=== PATIENT | male | born 1940 | race Caucasian/White ===

== ENCOUNTER 2018-09-06 04:51 | Emergency (ER) | payer MEDICARE ==
[~2018-09-06] VITALS: Ht 182.9 cm; Wt 90.7 kg
[~2018-09-06 04:51] MED LIST: ASPIRIN81 MG PO; BILBERRY500 MG PO; CO Q-10400 MG PO; ESTER-C 500 MG1 EACH PO; RED YEAST RICE600 MG PO; TRIPLE OMEGA PO; TURMERIC500 MG PO; VITAMIN D5000 UNIT PO; [UNRECOGNIZED DRUG - OTHER]
[2018-09-06] MEDS ORDERED: KETOROLAC TROMETHAMINE 30 MG/ML VIAL IM STA (05:13)
[2018-09-06 05:30] LABS: BILIRUBIN,URINE NEGATIVE (NEGATIVE); CLARITY,URINE HAZY (CLEAR); COLOR,URINE YELLOW (YELLOW); KETONES,URINE NEGATIVE (NEGATIVE); LEUKOCYTE ESTERASE ,URINE NEGATIVE (NEGATIVE); NITRITE,URINE NEGATIVE (NEGATIVE); PROTEIN,URINE DIPSTICK 2+ (NEGATIVE); URINE UROBILINOGEN 0.2 mg/dL (0.2 - 1)
[2018-09-06 05:50] LABS: BACTERIA,URINE RARE /HPF; EPITHELIAL CELLS,URINE MODERATE /LPF
[2018-09-06 05:51] LABS: MUCUS,URINE MODERATE (RARE); TRANSITIONAL EPI CELLS,URINE MODERATE
[2018-09-06] MEDS ORDERED: SODIUM CHLORIDE 0.9% 1000ML 1,000 ML IV STA (06:39)
--- NOTE | 2018-09-06 06:40 | Diagnostic Imaging Report ---
EXAMINATION: RIBS UNILAT W/CXR INDICATION: Left sided abrasions and bruising status post trauma COMPARISON: None FINDINGS: TUBES and LINES: None. LUNGS: Lungs are well inflated. Lungs are clear. There is no evidence of pneumonia or pulmonary edema. PLEURA: No pleural effusion or pneumothorax. HEART AND MEDIASTINUM: The cardiomediastinal silhouette is unremarkable. There are atherosclerotic calcifications within the aorta. BONES AND SOFT TISSUES: No acute osseous lesion. Soft tissues are unremarkable. UPPER ABDOMEN: No free air under the diaphragm. IMPRESSION: No acute thoracic abnormality. Signed by: Dr. Oliverio Viramontes M.D. on 09/06/2018 6:37 AM
[2018-09-06] MEDS ORDERED: CEFTRIAXONE SOD 1 GM VIAL IV ONE (06:45)
[2018-09-06] MEDS ORDERED: CEFTRIAXONE SOD 1 GM VIAL ONE (06:47)
[2018-09-06 06:52] LABS: BASOPHILS % 0.3 % (0.0-1.0); EOSINOPHILS # (AUTO) 0.1 (0.0-0.4); EOSINOPHILS % 0.8 % (0.0-6.0); HEMATOCRIT 44.9 % (38.2-49.6); HEMOGLOBIN 14.8 g/dL (14.0-18.0); LYMPHOCYTES # (AUTO) 1.7 (1.0-3.2); LYMPHOCYTES % 19.6 % (18.0-39.1); MEAN CORPUSCULAR HEMOGLOBIN 27.8 pg (28-32); MEAN CORPUSCULAR VOLUME 84.2 fL (81-99); MONOCYTES # (AUTO) 0.7 (0.2-0.8); MONOCYTES % 7.6 % (4.4-11.3); NEUTROPHILS # (AUTO) 6.2 (2.1-6.9); NEUTROPHILS % 70.2 % (38.7-80.0); PLATELET COUNT 180 x10e3/uL (140-360); RED BLOOD COUNT 5.33 x10e6/uL (4.3-5.7); RED CELL DISTRIBUTION WIDTH 13.4 % (11.7-14.4)
[2018-09-06 07:24] LABS: ALBUMIN 4.1 g/dL (3.5-5.0); ALBUMIN/GLOBULIN RATIO 1.3 (0.8-2.0); ANION GAP 14.5 mmol/L (8-16); CALCIUM 10.1 mg/dL (8.4-10.2); CREATININE, SERUM 1.21 mg/dL (0.72-1.25); MAGNESIUM 2.2 MG/DL (1.3-2.1); POTASSIUM 4.5 mmol/L (3.5-5.1)
--- NOTE | 2018-09-06 07:44 | Diagnostic Imaging Report ---
PROCEDURE: CT ABDOMEN AND PELVIS WITHOUT CONTRAST TECHNIQUE: The abdomen and pelvis were scanned utilizing a multidetector helical scanner from the diaphragm to the lesser trochanter. No oral contrast was administered. No IV contrast was administered per protocol. Coronal and sagittal multiplanar reformations were obtained. COMPARISON: CT Abdomen/Pelvis 02/04/[address] Abdomen/Pelvis 02/16/17 (images were not available to review at the time of dictation) INDICATIONS: LEFT FLANK PAIN FINDINGS: ABSENCE OF INTRAVENOUS CONTRAST DECREASES SENSITIVITY FOR DETECTION OF FOCAL LESIONS AND VASCULAR PATHOLOGY. LOWER THORAX: Coronary atherosclerosis. Patchy dependent atelectasis. Calcified granuloma in the right upper and lower lobes. HEPATOBILIARY: No focal hepatic lesions. No biliary ductal dilatation. Status post cholecystectomy. SPLEEN: No splenomegaly. Punctate splenic calcifications. PANCREAS: No focal masses or ductal dilatation. ADRENALS: No adrenal nodules. KIDNEYS/URETERS: No hydronephrosis or solid mass lesions. Punctate 1 mm stone in the right upper pole kidney on series 3 image 62; 1-2 mm stones in the right mid pole on images 70, 72, and 79. Mild left perinephric stranding. PELVIC ORGANS/BLADDER: There is a 3 mm stone in the left aspect of the bladder near the UVJ. Enlarged prostate is again noted. There is circumferential thickening of the bladder measuring up to 8 mm which is mildly decompressed. PERITONEUM / RETROPERITONEUM: No free air or fluid. LYMPH NODES: No lymphadenopathy. VESSELS: Atherosclerotic vascular calcifications. GI TRACT: No distention or wall thickening. Normal appendix. Extensive colonic diverticulosis without CT evidence of diverticulitis. BONES AND SOFT TISSUES: No acute bony findings. No evidence of suspicious lytic or blastic lesions. IMPRESSION: A 3 mm stone in the bladder near the left UVJ, with associated mild left perinephric stranding, suggesting recent passage of the stone into the bladder from the left ureter. Circumferential bladder wall thickening, which could reflect cystitis in the appropriate clinical context. Punctate 1-2 mm non-obstructing right renal stones. Dictated by: AVRIL SOLITARIO M.D. on 09/06/2018 at 7:53 Electronically approved by: AVRIL SOLITARIO M.D. on 09/06/2018 at 7:53
== END 2018-09-06 09:10 | disposition home or self-care (01) ==
LOC: ER 04:51
DX: M54.5 Low back pain (principal); R10.9 Unspecified abdominal pain; N13.2 Hydronephrosis with renal and ureteral calculous obstruction; Z85.46 Personal history of malignant neoplasm of prostate
CPT/HCPCS: 36415; 71101; 74176; 80053; 81001; 83735; 85025; 87086; 99284; J0696; J1885; J7030

== ENCOUNTER 2018-12-23 11:26 | Inpatient (IN) | payer MEDICARE ==
--- NOTE | 2018-12-21 12:05 | Diagnostic Imaging Report ---
EXAM: CHEST 2 VIEWS, PA and lateral DATE: 12/21/2018 11:07 AM Time stamp on exam: 11:12 AM INDICATION: Preoperative COMPARISON: None FINDINGS: LINES/TUBES: None LUNGS: No consolidations or edema. PLEURA: No effusions or pneumothorax. HEART AND MEDIASTINUM: Normal size and contour. Tortuous thoracic aorta. BONES AND SOFT TISSUES: No acute findings. Degenerative spurring of the spine. IMPRESSION: No acute thoracic abnormality. Signed by: Dr. Bj Bolanos DO on 12/21/2018 12:02 PM
[~2018-12-23] VITALS: Ht 182.9 cm; Wt 83.0 kg
[~2018-12-23 11:26] MED LIST changes: +B12; +D3
--- OUTSIDE RECORDS SUMMARY | 2018-12-23 11:29 | XMS REPORT ---
Author Author [facility] Address Unknown Phone Unavailable Care Team Providers Care Family Worker Name Role Phone MAGALY KUO Unavailable Unavailable SWEET, Kirk LAIRD Unavailable Unavailable Problems This patient has no known problems. Allergies, Adverse Reactions, Alerts This patient has no known allergies or adverse reactions. Medications This patient has no known medications. Results Test Description Test Time Test Comments Text Results Atomic Results Result Comments CHEST 2 VIEWS 2018-12-21 12:01:00 [place] [address] Patient Name: RONNIE PALUMBO MR #: [id number] : 1940 Age/Sex: 78/M Req #: [id number] Adm Physician: Ordered by: MAGALY KUO MD Report #: [id number] Location: OR Room/Bed: Procedure: [id number] DX/CHEST 2 VIEWS Exam Date: Exam Time: REPORT STATUS: Signed EXAM: CHEST 2 VIEWS, PA and lateral DATE: 12/21/2018 11:07 AM Time stamp on exam: 11:12 AM INDICATION: Preoperative COMPARISON: None FINDINGS: LINES/TUBES: None LUNGS: No consolidations or edema. PLEURA: No effusions or pneumothorax. HEART AND MEDIASTINUM: Normal size and contour. Tortuous thoracic aorta. BONES AND SOFT TISSUES: No acute findings. Degenerative spurring of the spine. IMPRESSION: No acute thoracic abnormality. Signed by: Dr. Zoila Bolanos DO on 12/21/2018 12:02 PM Dictated By: ZOILA BOLANOS DO 1202 Transcribed By: KAMILLE on 12/21/18 1202 COPY TO: MAGALY KUO MD CT ABDOMEN/PELVIS WO 2018-09-06 07:53:00 [place] [address] Patient Name: RONNIE PALUMBO MR #: [id number] : 1940 Age/Sex: 78/M Req #: [id number] Adm Physician: Ordered by: YASMEEN AGUILAR MD Report #: [id number] Location: ER Room/Bed: Procedure: [id number] CT/CT ABDOMEN/PELVIS WO Exam Date: 09/06/18 Exam Time: 0657 REPORT STATUS: Signed PROCEDURE: CT ABDOMEN AND PELVIS WITHOUT CONTRAST TECHNIQUE: The abdomen and pelvis were scanned utilizing a multidetector helical scanner from the diaphragm to the lesser trochanter. No oral contrast was administered. No IV contrast was administered per protocol. Coronal and sagittal multiplanar reformations were obtained. COMPARISON: CT Abdomen/Pelvis 02/04/[address] Abdomen/Pelvis 02/16/17 (images were not available to review at the time of dictation) INDICATIONS: LEFT FLANK PAIN FINDINGS: ABSENCE OF INTRAVENOUS CONTRAST DECREASES SENSITIVITY FOR DETECTION OF FOCAL LESIONS AND VASCULAR PATHOLOGY. LOWER THORAX: Coronary atherosclerosis. Patchy dependent atelectasis. Calcified granuloma in the right upper and lower lobes. HEPATOBILIARY: No focal hepatic lesions. No biliary ductal dilatation. Status post cholecystectomy. SPLEEN: No splenomegaly. Punctate splenic calcifications. PANCREAS: No focal masses or ductal dilatation. ADRENALS: No adrenal nodules. KIDNEYS/URETERS: No hydronephrosis or solid mass lesions. Punctate 1 mm stone in the right upper pole kidney on series 3 image 62; 1-2 mm stones in the right mid pole on images 70, 72, and 79. Mild left perinephric stranding. PELVIC ORGANS/BLADDER: There is a 3 mm stone in the left aspect of the bladder near the UVJ. Enlarged prostate is again noted. There is circumferential thickening of the bladder measuring up to 8 mm which is mildly decompressed. PERITONEUM / RETROPERITONEUM: No free air or fluid. LYMPH NODES: No lymphadenopathy. VESSELS: Atherosclerotic vascular c alcifications. GI TRACT: No distention or wall thickening. Normal appendix. Extensive colonic diverticulosis without CT evidence of diverticulitis. BONES AND SOFT TISSUES: No acute bony findings. No evidence of suspicious lytic or blastic lesions. IMPRESSION: A 3 mm stone in the bladder near the left UVJ, with associated mild left perinephric stranding, suggesting recent passage of the stone into the bladder from the left ureter. Circumferential bladder wall thickening, which could reflect cystitis in the appropriate clinical context. Punctate 1-2 mm non- obstructing right renal stones. Dictated by: AVRIL SOLITARIO M.D. on 09/06/2018 at 7:53 Electronically approved by: AVRIL SOLITARIO M.D. on 09/06/2018 at 7:53 Dictated By: AVRIL SOLITARIO MD 2 Transcribed By: ANURADHA on 09/06/18752 COPY TO: YASMEEN AGUILAR MD [facility] W/CXR 2018-09-06 06:36:00 [place] [address] Patient Name: RONNIE PALUMBO MR #: [id number] : 1940 Age/Sex: 78/M Req #: [id number] Adm Physician: Ordered by: YASMEEN AGUILAR MD Report #: [id number] Location: ER Room/Bed: Procedure: [id number] DX/RIBS UNILAT W/CXR Exam Date: Exam Time: REPORT STATUS: Signed EXAMINATION: RIBS UNILAT W/CXR INDICATION: Left sided abrasions and bruising status post trauma COMPARISON: None FINDINGS: TUBES and LINES: None. LUNGS: Lungs are well inflated. Lungs are clear. There is no evidence of pneumonia or pulmonary edema. PLEURA: No pleural effusion or pneumothorax. HEART AND MEDIASTINUM: The cardiomediastinal silhouette is unremarkable. There are atherosclerotic calcifications within the aorta. BONES AND SOFT TISSUES: No acute osseous lesion. Soft tissues are unremarkable. UPPER ABDOMEN: No free air under the diaphragm. IMPRESSION: No acute thoracic abnormality. Signed by: Dr. Oliverio Viramontes M.D. on 09/06/2018 6:37 AM Dictated By: OLIVERIO CRUM MD 6 Transcribed By: KAMILLE on 09/06/18636 COPY TO: YASMEEN AGUILAR MD
[2018-12-23] MEDS ORDERED: GENTAMICIN 80MG/NS 100 ML 200 ML IV ONE (11:42)
[2018-12-23] MEDS ORDERED: CEFTRIAXONE SOD 1 GM/NS 50 ML 50 ML IV ONE (11:42)
[2018-12-23] MEDS ORDERED: SEVOFLURANE INHAL SOLN 250 ML PEN BTL ONE (14:46)
[2018-12-23] MEDS ORDERED: ONDANSETRON HCL INJ 2MG/ML 2ML 2 MG/ML VIAL ONE ×2 (14:46→19:15)
[2018-12-23] MEDS ORDERED: LIDOCAINE HCL 2% LOCAL INJ 5 ML SDV VIAL INJ ONE (14:46)
[2018-12-23] MEDS ORDERED: DEXAMETHASONE SOD PHOS INJ 4 MG/ML VIAL ONE (14:46)
[2018-12-23] MEDS ORDERED: EPHEDRINE SULFATE INJ 50 MG/10 ML SYR ONE (14:46)
[2018-12-23] MEDS ORDERED: PROPOFOL IV EMULSION 10 MG/ML 20 ML VIAL ONE (14:46)
[2018-12-23] MEDS ORDERED: BELLADONNA/OPIUM 30 MG SUPP RC ONE (15:16)
[2018-12-23] MEDS ORDERED: IOPAMIDOL 610MG/1ML 300 MG/ML VIAL IV ONE (15:17)
[2018-12-23] MEDS ORDERED: MEPERIDINE HCL INJ 25 MG/ML VIAL ONE (17:12)
[2018-12-23] MEDS ORDERED: MORPHINE SULFATE INJ 4 MG/ML INJ 1ML ONE (17:59)
[2018-12-23] MEDS ORDERED: DIPHENHYDRAMINE HCL 25 MG CAP PO PRN (18:15)
[2018-12-23] MEDS ORDERED: ACETAMINOPHEN/CODEINE 300MG - 30MG TAB PO PRN (18:15)
[2018-12-23] MEDS ORDERED: BELLADONNA/OPIUM 30 MG SUPP RC PRN (18:15)
[2018-12-23] MEDS ORDERED: ONDANSETRON HCL INJ 2MG/ML 2ML 2 MG/ML VIAL IV PRN (18:15)
[2018-12-23] MEDS ORDERED: CEFTRIAXONE SOD 1 GM/NS 50 ML 50 ML IV SCH (18:30)
[2018-12-23] MEDS ORDERED: PHENAZOPYRIDINE HCL 100 MG TAB PO ONE (18:45)
[2018-12-23 20:19] VITALS: BP 160/76
[2018-12-23 20:21] VITALS: BP 160/76
--- NOTE | 2018-12-23 20:21 | NUR ---
PT ARRIVING TO UNIT IN HOSPITAL BED WITH CBI IN PROGRESS AND FAMILY AT BEDSIDE, NO DISTRESS NOTED
[2018-12-23 20:25] VITALS: BP 160/76
[2018-12-23 21:12] LABS: BASOPHILS % 0.2 % (0.0-1.0); HEMATOCRIT 37.8 % (38.2-49.6); HEMOGLOBIN 12.6 g/dL (14.0-18.0); LYMPHOCYTES # (AUTO) 0.8 (1.0-3.2); LYMPHOCYTES % 6.1 % (18.0-39.1); MEAN CORPUSCULAR HEMOGLOBIN 27.2 pg (28-32); MEAN CORPUSCULAR HGB CONC 33.3 g/dL (31-35); MEAN CORPUSCULAR VOLUME 81.6 fL (81-99); MONOCYTES # (AUTO) 0.3 (0.2-0.8); MONOCYTES % 2.4 % (4.4-11.3); NEUTROPHILS # (AUTO) 11.2 (2.1-6.9); NEUTROPHILS % 90.6 % (38.7-80.0); PLATELET COUNT 153 x10e3/uL (140-360); RED BLOOD COUNT 4.63 x10e6/uL (4.3-5.7); RED CELL DISTRIBUTION WIDTH 13.9 % (11.7-14.4)
[2018-12-23 21:31] LABS: ANION GAP 14.6 mmol/L (8-16); BLOOD UREA NITROGEN 14 mg/dL (7-26); BUN/CREATININE RATIO 13 (6-25); CALCIUM 8.6 mg/dL (8.4-10.2); CARBON DIOXIDE 22 mmol/L (22-29); CHLORIDE 104 mmol/L (98-107); CREATININE, SERUM 1.09 mg/dL (0.72-1.25); EST GLOMERULAR FILTRATION RATE > 60 ML/MIN (60-); GLUCOSE 145 mg/dL (74-118); POTASSIUM 3.6 mmol/L (3.5-5.1); SODIUM 137 mmol/L (136-145)
--- NOTE | 2018-12-23 22:33 | Operative Report ---
DATE OF PROCEDURE: December 23, 2018 PREOPERATIVE DIAGNOSES 1. Obstructive benign prostatic hypertrophy. 2. Hematuria history. POSTOPERATIVE DIAGNOSES 1. Obstructive benign prostatic hypertrophy. 2. Hematuria history. PROCEDURES PERFORMED 1. Cystourethroscopy with bilateral ureteral catheterization and retrograde ureteropyelography hematuria history. 2. Interpretation of retrograde urethrography. 3. Cystourethroscopy with transurethral resection of the prostate utilizing the plasma button electrode. ANESTHESIA: General. COMPLICATIONS: None. CLINICAL SUMMARY: Jeremie Moreno is a 78-year-old man with what is believed to be clinically localized prostate cancer, managed with watchful waiting. The patient has long-standing severe BPH, status post prior transurethral prostate procedure. The patient has obstructing prostatic tissue that is caving into his previously opened prostate bed. He is elected to proceed with surgery as planned. He is aware of the risks of bleeding, infection, injury to adjacent structures, need for additional procedures, and elected to proceed. OPERATIVE PROCEDURE IN DETAIL: Informed consent was verified. Jeremie Moreno was properly identified, taken to the operating room, placed on the cystoscopy table in the supine position. Anesthesia was uneventfully begun. The patient was then carefully and gently repositioned in the dorsal lithotomy position with all pressure points well padded. His genitalia were prepared and draped in usual sterile fashion. The 22.5-Sammarinese cystourethroscope sheath visual obturator placed, atraumatically inserted into the patient's urethra. It was guided down unremarkably in the urethra through the normal sphincteric region into the prostate bed, which was significant for visually obstructing BPH caving in mostly from anteriorly. Also, there was re-growth of tissue from the apex, more pronounced on the right than on the left. That was also visually obstructing. We entered the patient's bladder where panendoscopy revealed severe trabeculations with small diverticuli and cellules throughout the entire bladder. No suspicious lesions were identified. There were no tumors and no stones. Normally positioned and configured ureteral orifices were noted. An 8-Sammarinese catheter was used to cannulate each ureter and retrograde ureteral pyelograms were performed. Interpretation of retrograde ureteropyelography contrast was instilled in a retrograde fashion bilaterally. There were no tumors, no stones, and no diverticuli, and no obstructive drainage was observed bilaterally fluoroscopically. The resectoscope was atraumatically placed. We then utilized the plasma button electron to vaporize the prostate. Vaporization of the prostate was carried out from the bladder neck too, but never passed the verumontanum. Most of the procedures performed on the right lateral lobe in the apical region as well as the on the anterior prostatic tissue that was caving in and obstructing. Once all that tissue was vaporized, we verified hemostasis. We evacuated debris. Hemostasis was excellent. The resectoscope was withdrawn. A 3-way Bowman catheter was placed; 60 mL of water was placed in 30 mL balloon. Due to the large size of the prostate bed and cavity, the patient was then placed on continuous bladder irrigation with clear efflux. Patient was then uneventfully reversed from anesthesia and taken to recovery room in stable condition. There were no complications throughout the procedure. Patient tolerated the procedure well. We will monitor the patient's irrigation in the recovery room and determine whether the patient may be discharged with a Bowman catheter or whether he will need to be admitted for continuous irrigation. Job#: [id number] RTY cc: Mert Bautista MD
[2018-12-23] MEDS: D5.45%NS/KCL 20MEQ 1,000 ML IV SCH (22:42)
[2018-12-24] VITALS (7 sets, daily range): BP systolic 116–143; BP diastolic 60–73
[2018-12-24] MEDS: D5.45%NS/KCL 20MEQ 1,000 ML IV SCH ×3 (02:15→23:06)
[2018-12-24 05:53] LABS: BASOPHILS # (AUTO) 0.1 (0.0-0.1); BASOPHILS % 0.4 % (0.0-1.0); EOSINOPHILS % 0.2 % (0.0-6.0); HEMATOCRIT 36.1 % (38.2-49.6); HEMOGLOBIN 11.8 g/dL (14.0-18.0); LYMPHOCYTES # (AUTO) 1.4 (1.0-3.2); MEAN CORPUSCULAR HEMOGLOBIN 27.2 pg (28-32); MEAN CORPUSCULAR HGB CONC 32.7 g/dL (31-35); MEAN CORPUSCULAR VOLUME 83.2 fL (81-99); MONOCYTES # (AUTO) 0.9 (0.2-0.8); MONOCYTES % 7.3 % (4.4-11.3); NEUTROPHILS # (AUTO) 10.2 (2.1-6.9); NEUTROPHILS % 80.6 % (38.7-80.0); PLATELET COUNT 171 x10e3/uL (140-360); RED BLOOD COUNT 4.34 x10e6/uL (4.3-5.7); RED CELL DISTRIBUTION WIDTH 13.8 % (11.7-14.4)
--- NOTE | 2018-12-24 06:03 | NUR ---
PT RESTING IN BED ALERT AND ORIENTED NO DISTRESS NOTED, CALL LIGHT IN REACH, DENIES NEEDS, INSTRUCTED TO CALL WITH NEEDS
[2018-12-24 06:22] LABS: ANION GAP 12.1 mmol/L (8-16); BLOOD UREA NITROGEN 12 mg/dL (7-26); BUN/CREATININE RATIO 13 (6-25); CALCIUM 8.1 mg/dL (8.4-10.2); CARBON DIOXIDE 22 mmol/L (22-29); CHLORIDE 106 mmol/L (98-107); CREATININE, SERUM 0.89 mg/dL (0.72-1.25); EST GLOMERULAR FILTRATION RATE > 60 ML/MIN (60-); GLUCOSE 123 mg/dL (74-118); POTASSIUM 4.1 mmol/L (3.5-5.1); SODIUM 136 mmol/L (136-145)
[2018-12-24] MEDS: DOCUSATE SODIUM 100 MG CAP PO SCH ×2 (10:00→17:33)
--- NOTE | 2018-12-24 10:00 | NUR ---
assessment complete no distress noted, updated on poc voiced understanding, deneis pain at this time, marti to bsd with rodriguez urine noted, continuous bladder irrigation infusing, ivf infusing to r hand 20g no ss of infiltration noted, no other co voiced call light in reach will continue to monitor
--- NOTE | 2018-12-24 12:03 | NUR ---
Nutrition Screen Note RD Recommendation for Physician: Continue diet as ordered Plan of Care: RD following, monitoring for adequacy and tolerance Nutrition reason for involvement: Nutrition Risk Trigger - MST Primary Diagnose(s): Prostatism Ht:72 in Wt:183lbs BMI:24.8 kg/m2 IBW:178lbs RD Assessment:(12/24/2018) Pt is eating well and denies any difficulty chewing or swallowing nor has any C/o N,V, D. Current Diet: Regular diet Malnutrition Evaluation (12/24/2018) The patient does not meet criteria for a specified degree of malnutrition at this time. Will re-evaluate at follow-up as appropriate. Diet Education Needs Assessment: Diet education not indicated. Diet Adequacy: Meeting calorie needs, Meeting protein needs, Meeting fluid needs Tolerance: Tolerating PO Nutrition Care Level:Winston Hinojosa RD, LD, [facility]
--- NOTE | 2018-12-24 13:12 | History and Physical ---
CHIEF COMPLAINT: "I have blood in my urine." HISTORY OF PRESENT ILLNESS: This is a 78-year-old white man who yesterday underwent elective transurethral resection of the prostate. The surgery was performed successfully by his urologist, Dr. Christopher Marquez. The patient states he has undergone TURP twice before, first in 2014 and second in 2016. The patient also states that at age 65, he was diagnosed with prostate cancer. The patient had blood work done yesterday and it was found that hemoglobin at 12.6 g/dL. Today's hemoglobin is 11.8 g/dL. Yesterday's white blood cell count was 12,500 with 80% segmented neutrophils. The patient is currently receiving intravenous ceftriaxone, which he is tolerating quite well. He is also receiving intravenous fluids. Moreover, he is having his bladder irrigated until clear as per Urology orders. The patient is voicing no complaints. REVIEW OF SYSTEMS GENERAL: Weight has been stable. HEENT: No headache. No vision changes. CARDIOVASCULAR: No chest pain. GI: No nausea, vomiting, diarrhea, or constipation. : The patient has history of recurrent gross hematuria. NEUROMUSCULAR: No limb weakness or numbness. ALLERGIES: NO KNOWN DRUG ALLERGIES. HOME MEDICATIONS 1. Vitamin D3 supplementation. 2. Coenzyme Q10 supplementation. FAMILY HISTORY: No family history positive for cancer. SOCIAL HISTORY: He is with his . No history of tobacco or alcohol use. He is semi-retired. PAST SURGICAL HISTORY 1. TURP twice (2014 and 2016). 2. TURP yesterday December 23, 2018. 3. Laparoscopic cholecystectomy. PAST MEDICAL HISTORY 1. Prostate cancer diagnosed at age 65. 2. Benign prostatic hypertrophy. PHYSICAL EXAMINATION GENERAL: He is awake and alert, in no distress, very pleasant. VITAL SIGNS: Height is 6 feet 0 inches, weight is 183 pounds, BMI 24, blood pressure 133/67, pulse 66, respiratory rate 18, temperature 98.6. Oxygen saturation is 97% on room air. INTEGUMENT: Skin is warm and dry. No pallor, jaundice, or diaphoresis. HEENT: Anicteric sclerae with moist mucous membranes. CARDIOVASCULAR: Distant heart sounds. Regular rate and rhythm. LUNGS: No rales. No rhonchi. No wheezing. ABDOMEN: Benign. EXTREMITIES: No edema or deformity. NEUROLOGIC: Intact. : The patient has Bowman catheter in place and there is obvious hematuria. DIAGNOSES 1. Status post TURP December 23, 2018. 2. Gross hematuria. 3. Benign prostatic hypertrophy. 4. Prostate cancer. 5. Hypertension. PLAN 1. Decrease the rate of intravenous fluids. 2. Continue bladder irrigation as per Urology. 3. Follow hemoglobin and hematocrit. 4. Follow renal function. 5. Follow electrolytes. 6. Follow blood pressure readings. I spent 35 minutes in the care of this patient. Job#: [id number] SEBASTIAN
--- NOTE | 2018-12-24 19:10 | NUR ---
REPORT RECEIVED FROM OFF GOING NURSE, PT RESTING IN BED ALERT AND ORIENTED, NO DISTRESS NOTED, CBI IN PROGRESS WITH NO COMPLICATIONS NOTED, DENIES NEEDS, CALL LIGHT IN REACH, INSTRUCTED TO CALL WITH NEEDS
[2018-12-24] MEDS: CEFTRIAXONE SOD 1 GM/NS 50 ML 50 ML IV SCH (21:05)
[2018-12-25] VITALS (8 sets, daily range): BP systolic 125–181; BP diastolic 64–84
--- NOTE | 2018-12-25 05:17 | NUR ---
PT RESTING IN BED WITH EYES CLOSED, NO DISTRESS NOTED, CBI IN PROGRESS WITH NO COMPLICATIONS NOTED, CALL LIGHT IN REACH
[2018-12-25 06:42] LABS: BASOPHILS % 0.3 % (0.0-1.0); EOSINOPHILS # (AUTO) 0.3 (0.0-0.4); EOSINOPHILS % 2.7 % (0.0-6.0); HEMATOCRIT 34.5 % (38.2-49.6); HEMOGLOBIN 11.9 g/dL (14.0-18.0); LYMPHOCYTES # (AUTO) 1.8 (1.0-3.2); LYMPHOCYTES % 19.3 % (18.0-39.1); MEAN CORPUSCULAR HEMOGLOBIN 28.5 pg (28-32); MEAN CORPUSCULAR HGB CONC 34.5 g/dL (31-35); MEAN CORPUSCULAR VOLUME 82.7 fL (81-99); MONOCYTES # (AUTO) 0.7 (0.2-0.8); MONOCYTES % 7.3 % (4.4-11.3); NEUTROPHILS # (AUTO) 6.4 (2.1-6.9); NEUTROPHILS % 69.6 % (38.7-80.0); PLATELET COUNT 174 x10e3/uL (140-360); RED BLOOD COUNT 4.17 x10e6/uL (4.3-5.7); RED CELL DISTRIBUTION WIDTH 14.4 % (11.7-14.4)
[2018-12-25 07:06] LABS: ALANINE AMINOTRANSFERASE 7 IU/L (0-55); ALBUMIN 3.1 g/dL (3.5-5.0); ALBUMIN/GLOBULIN RATIO 1.6 (0.8-2.0); ALKALINE PHOSPHATASE 47 IU/L (40-150); BLOOD UREA NITROGEN 10 mg/dL (7-26); BUN/CREATININE RATIO 11 (6-25); CALCIUM 8.4 mg/dL (8.4-10.2); CARBON DIOXIDE 25 mmol/L (22-29); CHLORIDE 106 mmol/L (98-107); CREATININE, SERUM 0.92 mg/dL (0.72-1.25); EST GLOMERULAR FILTRATION RATE > 60 ML/MIN (60-); GLUCOSE 106 mg/dL (74-118); SODIUM 140 mmol/L (136-145)
[2018-12-25] MEDS: D5.45%NS/KCL 20MEQ 1,000 ML IV SCH (10:03)
[2018-12-25] MEDS: DOCUSATE SODIUM 100 MG CAP PO SCH ×2 (10:03→18:00)
[2018-12-25] MEDS: CEFTRIAXONE SOD 1 GM/NS 50 ML 50 ML IV SCH ×2 (10:03→21:20)
--- NOTE | 2018-12-25 10:03 | NUR ---
assessment complete no distress noted updated on poc voiced understanding, denies pain at this time, marti to bsd with rodriguez urine noted, continuous bladder irrigation infusing without difficulty, no other co voiced call light in reach will continue to monitor
[2018-12-25] MEDS ORDERED: POTASSIUM CHLORIDE 10MEQ EA PO ONE (10:45)
--- NOTE | 2018-12-25 20:23 | NUR ---
RECEIVED PT IN BED AOX3 DENIES PAIN PT IS ON CBI .RESPIRATIONS ARE EVEN AND UNLABORED .CALL LIGHT WITH IN REACH .RT HAND 20M G S/L
[2018-12-26] VITALS (8 sets, daily range): BP systolic 124–157; BP diastolic 64–89
--- NOTE | 2018-12-26 06:13 | NUR ---
PT RESTING .PT IS ON CBI .URINE OFF AND ON CLEAR ND LIGHT TIFFANY.NO ACUTE DISTRESS NOTED CONTINUE TO MONITOR
[2018-12-26 06:19] LABS: BASOPHILS % 0.3 % (0.0-1.0); EOSINOPHILS # (AUTO) 0.4 (0.0-0.4); EOSINOPHILS % 3.2 % (0.0-6.0); HEMATOCRIT 34.6 % (38.2-49.6); HEMOGLOBIN 12.3 g/dL (14.0-18.0); LYMPHOCYTES # (AUTO) 1.9 (1.0-3.2); LYMPHOCYTES % 17.2 % (18.0-39.1); MEAN CORPUSCULAR HEMOGLOBIN 28.8 pg (28-32); MEAN CORPUSCULAR HGB CONC 35.5 g/dL (31-35); MONOCYTES # (AUTO) 0.8 (0.2-0.8); MONOCYTES % 7.4 % (4.4-11.3); NEUTROPHILS # (AUTO) 7.8 (2.1-6.9); NEUTROPHILS % 70.7 % (38.7-80.0); PLATELET COUNT 172 x10e3/uL (140-360); RED BLOOD COUNT 4.27 x10e6/uL (4.3-5.7); RED CELL DISTRIBUTION WIDTH 14.1 % (11.7-14.4)
[2018-12-26 06:45] LABS: ANION GAP 12.4 mmol/L (8-16); BLOOD UREA NITROGEN 10 mg/dL (7-26); BUN/CREATININE RATIO 10 (6-25); CALCIUM 8.9 mg/dL (8.4-10.2); CARBON DIOXIDE 26 mmol/L (22-29); CHLORIDE 103 mmol/L (98-107); CREATININE, SERUM 1.03 mg/dL (0.72-1.25); EST GLOMERULAR FILTRATION RATE > 60 ML/MIN (60-); GLUCOSE 103 mg/dL (74-118); POTASSIUM 4.4 mmol/L (3.5-5.1); SODIUM 137 mmol/L (136-145)
--- NOTE | 2018-12-26 07:24 | NUR ---
REPORT GIVEN TO THE ONCOMING NURSE
[2018-12-26] MEDS: CEFTRIAXONE SOD 1 GM/NS 50 ML 50 ML IV SCH ×2 (08:59→21:00)
[2018-12-26] MEDS: DOCUSATE SODIUM 100 MG CAP PO SCH ×2 (08:59→17:00)
[2018-12-26 14:53] LABS: INR 0.93; PARTIAL THROMBOPLASTIN TIME 28.3 seconds (23.8-35.5); PROTHROMBIN TIME 13.3 seconds (11.9-14.5)
--- NOTE | 2018-12-26 17:59 | Diagnostic Imaging Report ---
EXAM: Liver Ultrasound INDICATION: Abdominal pain. Assess for fatty liver. Cirrhosis ^assess for fatty liver disease associated cirrhosis ^[id number] ^1644 ^Y COMPARISON: None. TECHNIQUE: Transverse and longitudinal images of the liver were obtained. FINDINGS: Liver: Size: 14.6 cm in the right midclavicular line, normal Appearance: Normal echogenicity, smooth contour Mass: No focal masses Gallbladder: Surgically absent Bile Ducts: Intrahepatic Ducts: No dilatation Extrahepatic Ducts: Limited Free Fluid: No ascites or pleural effusion Main portal vein normal appearance with diameter of 0.9 cm. Right kidney normal in appearance measuring 10.4 cm. Pancreas and abdominal aorta unremarkable. Inferior vena cava unremarkable. Common bile duct measures 0.3 cm. Sonographic Roman sign is negative. IMPRESSION: Patient is status postcholecystectomy. The liver is normal in appearance. The right kidney is normal in appearance. Signed by: Dr. Chris Cao M.D. on 12/26/2018 5:55 PM
--- NOTE | 2018-12-26 19:30 | NUR ---
RECEIVED PATIENT RESTING IN BED. DR. KUO RECENTLY ROUNDED WITH PATIENT. CBI TO KELLY CLAMPED, WITH PRN IRRIGATION IF NEEDED. BED LOCKED AND IN LOWEST POSITION, CALL LIGHT WITHIN EASY REACH.
[2018-12-27] VITALS: BP 128/79
[2018-12-27 04:00] VITALS: BP 139/77
--- NOTE | 2018-12-27 04:57 | NUR ---
Patient is asleep. No pain or distress noted. Call weeks within reach.
[2018-12-27 07:01] LABS: BASOPHILS # (AUTO) 0.1 (0.0-0.1); BASOPHILS % 0.4 % (0.0-1.0); EOSINOPHILS # (AUTO) 0.3 (0.0-0.4); EOSINOPHILS % 2.8 % (0.0-6.0); HEMATOCRIT 38.4 % (38.2-49.6); HEMOGLOBIN 12.4 g/dL (14.0-18.0); LYMPHOCYTES # (AUTO) 1.9 (1.0-3.2); LYMPHOCYTES % 16.3 % (18.0-39.1); MEAN CORPUSCULAR HEMOGLOBIN 26.8 pg (28-32); MEAN CORPUSCULAR HGB CONC 32.3 g/dL (31-35); MEAN CORPUSCULAR VOLUME 83.1 fL (81-99); MONOCYTES # (AUTO) 0.8 (0.2-0.8); NEUTROPHILS # (AUTO) 8.2 (2.1-6.9); NEUTROPHILS % 72.4 % (38.7-80.0); PLATELET COUNT 197 x10e3/uL (140-360); RED BLOOD COUNT 4.62 x10e6/uL (4.3-5.7); RED CELL DISTRIBUTION WIDTH 14.1 % (11.7-14.4)
[2018-12-27 07:13] LABS: ALANINE AMINOTRANSFERASE 6 IU/L (0-55); ALBUMIN 3.4 g/dL (3.5-5.0); ALBUMIN/GLOBULIN RATIO 1.3 (0.8-2.0); ALKALINE PHOSPHATASE 55 IU/L (40-150); ANION GAP 14.1 mmol/L (8-16); BLOOD UREA NITROGEN 16 mg/dL (7-26); BUN/CREATININE RATIO 15 (6-25); CALCIUM 9.2 mg/dL (8.4-10.2); CARBON DIOXIDE 26 mmol/L (22-29); CHLORIDE 102 mmol/L (98-107); CREATININE, SERUM 1.07 mg/dL (0.72-1.25); EST GLOMERULAR FILTRATION RATE > 60 ML/MIN (60-); GLUCOSE 105 mg/dL (74-118); POTASSIUM 4.1 mmol/L (3.5-5.1); SODIUM 138 mmol/L (136-145)
--- NOTE | 2018-12-27 07:15 | NUR ---
Report given to morning nurse. Patient reports no pain or distress.
[2018-12-27 07:39] VITALS: BP 137/72
[2018-12-27 07:50] VITALS: BP 137/72
[2018-12-27] MEDS: CEFTRIAXONE SOD 1 GM/NS 50 ML 50 ML IV SCH (07:50)
[2018-12-27] MEDS: DOCUSATE SODIUM 100 MG CAP PO SCH (07:50)
[2018-12-27] MEDS ORDERED: TYLENOL WITH C1 EACH PO (12:04)
[2018-12-27 12:05] VITALS: BP 124/76
[2018-12-27] MEDS ORDERED: OXYBUTYNIN CHLOR5 MG PO (12:06)
[2018-12-27] MEDS ORDERED: LEVAQUIN500 MG PO (12:06)
--- NOTE | 2018-12-27 12:32 | NUR ---
CASE MANAGEMENT INITIAL ASSESSMENT Guide Plant to bedside to discuss plan of care with patient/family. CM/SW role and care transitions discussed. Anticipated discharge plan discussed along with duration of care. CM/SW discussed patients right to make decisions in care. CM/SW work hours given. Patient lives: with Kacy Admit/Transfer: from PACU, came from home Hospital/ER visits since last admit: ER visit in Aug 2018 POA/Emergency contact: Kacy Moreno [phone] Current/Previous Home Health: none PCP/Follow-up Care: Dr. Bautista and Dr. Marquez; CM educated pt and his on importance of follow up with physicians within 7 days of discharge or as instructed by MD. stated she will try to move appointments to an earlier time Current/Previous DME: none Medications (referring to index hospitalization or the first time you were in the hospital) a. Were changes made in your medications when you were in the hospital on [date of index hospitalization]? No b. Did you understand the changes? n/a c. Were you able to obtain your new medications right away? n/a d. Were you able to take your medications like the doctor wanted you to? yes e. Did the hospital give you an accurate, easy to understand list of medications when you left? n/a Other Services: none Employment Status: self-employed Areas of Concerns: hematuria Referral Needs: home health. Education Needs: cath care, irrigation IMM/ALVARADO given and signed (if applicable): IMM, explained to pt and his . They verbalized understanding Pt asked that his sign for him. signed copy placed in chart. Copy to pt's . Goal for discharge: home CM/SW left business card at the bedside with contact information. Name and number was also written on the patients whiteboard. Patient verbalized understanding of discussion. CM will follow-up with ongoing discharge and transition of care needs. CM spoke to pt and his regarding home health. Pt's stated that [facility] has already called her and stated that they can come see pt tomorrow. Dr. Bautista sent referral to [facility]. CM informed pt and his that pt has a right to make decisions in their care. They stated that they did not know any other home health companies so they are agreeable with Dr. Bautista's recommendation. Choice letter signed for [facility] and filed in chart. Copy to pt's . CHUNG called and spoke with Meño at [facility]. She stated Dr. Bautista already sent orders. They just need labs and current medications. CHUNG sent requested information, along with urology order for marti catheter care. Meño verified that they will send nursing out to see pt tomorrow. [facility] [address] [place] [address] P [phone] F [phone]
[2018-12-27] MEDS ORDERED: FENTANYL CITRATE/PF 100MCG/2 ML INJ ONE (13:18)
[2018-12-27] MEDS ORDERED: MIDAZOLAM HCL 2 MG/2 ML VIAL ONE (13:18)
--- NOTE | 2018-12-27 13:43 | NUR ---
MD CISNEROS AND MD KUO HAVE ROUNDED TODAY, BOTH OK DISCHARGE FOR PT. HOME HEALTH IS SET UP. PT HAS BEEN TAUGHT TO IRRIGATE AND CHANGE FROM KELLY BAG TO LEG BAG. HAS ALSO BEEN TAUGHT FOLLOW UP HAVE BEEN ARRANGED IV DC PRESSURE DRESSING APPLIED AND TAPED. PRESCRIPTIONS AND DC INSTRUCTIONS GIVEN. PT IS NOW OFF UNIT VIA WHEEL CHAIR TO HOME
--- NOTE | 2018-12-28 09:21 | NUR ---
Dictated DC summary: [id number]
--- NOTE | 2018-12-28 09:47 | Discharge Summary ---
ADMIT DIAGNOSES 1. Benign prostatic hypertrophy. 2. Prostate cancer. 3. Hypertensive heart disease. DISCHARGE DIAGNOSES 1. Status post transurethral resection of prostate on December 23, 2018. 2. Persistent hematuria requiring temporary indwelling Bowman catheter. 3. Benign prostatic hypertrophy. 4. Prostate cancer. 5. Hypertension. HOSPITAL COURSE: This is a 78-year-old white man who has a known history of prostate cancer and severe benign prostatic hypertrophy. On December 23, 2018, he underwent TURP, which was performed by Dr. Magaly Marquez, his urologist. Unfortunately, the patient experienced a significant amount of hematuria postoperatively. Thus, Bowman catheter had to stay in place with bladder irrigation. The patient remained in the hospital. His urine did become more clear, but the hematuria with intermittent blood clots did not resolve completely. Thus, the patient was sent home with an indwelling Bowman catheter. The patient's condition on discharge was stable. The patient was seen every day by urology service during this hospitalization. The patient was told to avoid all NSAIDs, which include aspirin. The patient was also told to avoid all blood thinners. The patient was also told to stop all supplements particularly garlic and tumeric. The patient's condition on discharge was stable. DISCHARGE MEDICATIONS 1. Vitamin D3 supplementation. 2. The patient was instructed to stop taking Co-Enzyme Q10, tumeric and garlic supplementation. FOLLOWUP INSTRUCTIONS: The patient will follow up with Dr. Marquez in 2 weeks. Prior to discharge, home health nursing was arranged. The plan was for the home health nurse to remove the Bowman catheter at his house once the visible blood clots have resolved. The patient will follow up with Dr. Marquez in 2 weeks. The patient was instructed to follow up with his new primary care physician, namely myself, Dr. Mert Cisneros, in the next 2 weeks also. MERT CISNEROS MD Job#: [id number] RI cc:MAGALY MARQUEZ MD
== END 2018-12-27 13:35 | disposition home health service (06) | DRG 713 ==
LOC: OR 11:26 → MED/SURG 18:26
PROVIDERS: ADMIT Internal Medicine; ATTEND Internal Medicine
PROC: 0VB08ZZ Excision of Prostate, Via Natural or Artificial Opening Endoscopic (ICD-10-PCS; 2018-12-23)
PROC: 0T788ZZ Dilation of Bilateral Ureters, Via Natural or Artificial Opening Endoscopic (ICD-10-PCS; 2018-12-23)
PROC: BT141ZZ Fluoroscopy of Kidneys, Ureters and Bladder using Low Osmolar Contrast (ICD-10-PCS; principal; 2018-12-23 14:00)
DX: N40.1 Benign prostatic hyperplasia with lower urinary tract symptoms (principal); N99.820 Postprocedural hemorrhage of a genitourinary system organ or structure following a genitourinary system procedure; N13.8 Other obstructive and reflux uropathy; R33.8 Other retention of urine; C61 Malignant neoplasm of prostate; R31.0 Gross hematuria; I10 Essential (primary) hypertension; D64.9 Anemia, unspecified
CPT/HCPCS: 36415; 71046; 74420; 76705; 80048; 80053; 83735; 85025; 85610; 85730; 93005; J0696; J1100; J1580; J2001; J2175; J2250; J2270; J2405

== ENCOUNTER → 2021-11-12 | Outpatient (CLI) | payer MEDICARE ==
[~2021-11-12] MED LIST changes: +IOPAMIDOL 370 MG/ML 200 ML INFUS..BTL INJ ONE; +LEVAQUIN500 MG PO; +OXYBUTYNIN CHLOR5 MG PO; +SODIUM CHLORIDE 0.9% 250ML 250 ML ONE; +SODIUM CHLORIDE 0.9% 50ML 0 ML ONE; +TYLENOL WITH C1 EACH PO
[2021-11-12 13:48] LABS: CREATININE, SERUM 1.07 mg/dL (0.72-1.25)
== END ==
LOC: CT 12:39
PROVIDERS: ATTEND Urology
DX: R31.0 Gross hematuria (principal)
CPT/HCPCS: 36415; 74178; 82565; 84520; J7050; Q9967

== ENCOUNTER → 2021-12-31 | Day surgery (SDC) | payer MEDICARE ==
[2021-12-29 13:44] LABS: BASOPHILS % 0.4 % (0.0-1.0); EOSINOPHILS # (AUTO) 0.1 (0.0-0.4); EOSINOPHILS % 0.8 % (0.0-6.0); HEMATOCRIT 47.1 % (38.2-49.6); HEMOGLOBIN 14.9 g/dL (14.0-18.0); LYMPHOCYTES % 23.7 % (18.0-39.1); MEAN CORPUSCULAR HEMOGLOBIN 26.4 pg (28-32); MEAN CORPUSCULAR HGB CONC 31.6 g/dL (31-35); MEAN CORPUSCULAR VOLUME 83.5 fL (81-99); MONOCYTES # (AUTO) 0.6 (0.2-0.8); MONOCYTES % 7.7 % (4.4-11.3); NEUTROPHILS # (AUTO) 5.6 (2.1-6.9); NEUTROPHILS % 66.6 % (38.7-80.0); PLATELET COUNT 172 x10e3/uL (140-360); RED BLOOD COUNT 5.64 x10e6/uL (4.3-5.7); RED CELL DISTRIBUTION WIDTH 14.3 % (11.7-14.4)
[~2021-12-31] MED LIST changes: +BELLADONNA/OPIUM 30 MG SUPP RC ONE; +CEFTRIAXONE 1 GM VIAL ONE; +IOPAMIDOL 300MG/ML 50ML INFUS..BTL IV ONE; -IOPAMIDOL 370 MG/ML 200 ML INFUS..BTL INJ ONE; +LIDOCAINE HCL 2% LOCAL INJ 5 ML SDV VIAL INJ ONE; +ONDANSETRON HCL INJ 2MG/ML 2ML 2 MG/ML VIAL ONE; +POVIDONE IODINE 0.05% 0.05 % ML PO ONE; +PROPOFOL IV EMULSION 10 MG/ML 20 ML VIAL ONE; +SEVOFLURANE INHAL SOLN 250 ML PEN BTL ONE; -SODIUM CHLORIDE 0.9% 250ML 250 ML ONE; -SODIUM CHLORIDE 0.9% 50ML 0 ML ONE; +SODIUM CHLORIDE 0.9% 50ML 50 ML ONE
[2021-12-31 09:55] VITALS: BP 167/82
== END | disposition home or self-care (01) ==
LOC: OR 06:43
PROVIDERS: ATTEND Urology
DX: N35.919 Unspecified urethral stricture, male, unspecified site (principal); Z85.46 Personal history of malignant neoplasm of prostate; N32.3 Diverticulum of bladder; N39.0 Urinary tract infection, site not specified; N40.0 Benign prostatic hyperplasia without lower urinary tract symptoms; K57.92 Diverticulitis of intestine, part unspecified, without perforation or abscess without bleeding; I10 Essential (primary) hypertension; Z88.1 Allergy status to other antibiotic agents; Z01.812 Encounter for preprocedural laboratory examination; Z01.818 Encounter for other preprocedural examination; Z20.822 Contact with and (suspected) exposure to COVID-19; Z85.828 Personal history of other malignant neoplasm of skin; Z86.73 Personal history of transient ischemic attack (TIA), and cerebral infarction without residual deficits; Z98.890 Other specified postprocedural states
CPT/HCPCS: 36415; 52214; 71046; 74420; 85025; 88305; J0696; J2001; J2405; J2704; Q9967; U0002

== ENCOUNTER → 2022-09-10 | Outpatient (CLI) | payer MEDICARE ==
[~2022-09-10] MED LIST changes: -BELLADONNA/OPIUM 30 MG SUPP RC ONE; -CEFTRIAXONE 1 GM VIAL ONE; -IOPAMIDOL 300MG/ML 50ML INFUS..BTL IV ONE; +IOPAMIDOL 370 MG/ML 100 ML INFUS..BTL INJ ONE; -LIDOCAINE HCL 2% LOCAL INJ 5 ML SDV VIAL INJ ONE; -ONDANSETRON HCL INJ 2MG/ML 2ML 2 MG/ML VIAL ONE; -POVIDONE IODINE 0.05% 0.05 % ML PO ONE; -PROPOFOL IV EMULSION 10 MG/ML 20 ML VIAL ONE; -SEVOFLURANE INHAL SOLN 250 ML PEN BTL ONE; +SODIUM CHLORIDE 0.9% 250ML 250 ML ONE; -SODIUM CHLORIDE 0.9% 50ML 50 ML ONE
[2022-09-10 13:41] LABS: CREATININE, SERUM 0.96 mg/dL (0.72-1.25)
== END ==
LOC: CT 12:50
PROVIDERS: ATTEND Urology
DX: R31.0 Gross hematuria (principal)
CPT/HCPCS: 36415; 74178; 82565; 84520; J7050; Q9967

== ENCOUNTER → 2023-01-06 | Outpatient (CLI) | payer MEDICARE ==
[~2023-01-06] MED LIST changes: -IOPAMIDOL 370 MG/ML 100 ML INFUS..BTL INJ ONE; -SODIUM CHLORIDE 0.9% 250ML 250 ML ONE
== END ==
LOC: RAD 11:44
PROVIDERS: ATTEND Internal Medicine
DX: R10.9 Unspecified abdominal pain (principal); R07.81 Pleurodynia
CPT/HCPCS: 71101; 76700

== ENCOUNTER → 2023-03-03 | Outpatient (CLI) | payer MEDICARE | LOC: CT 07:14 | PROVIDERS: ATTEND Urology | DX: N20.0 Calculus of kidney (principal) | CPT/HCPCS: 74176 ==